=== PATIENT | male | born 1960 | race Caucasian/White ===

== ENCOUNTER → 2021-06-01 | Outpatient (CLI) | payer MEDICARE, OTHER | LOC: KOH-I 08:39 | DX: M25.561 Pain in right knee (principal); M25.361 Other instability, right knee; S82.091A Other fracture of right patella, initial encounter for closed fracture; S83.231A Complex tear of medial meniscus, current injury, right knee, initial encounter | CPT/HCPCS: 73721 ==

== ENCOUNTER 2021-09-23 11:08 | Inpatient (IN) | payer MEDICARE, OTHER ==
[~2021-09-23] VITALS: Ht 188 cm; Wt 124.7 kg
[2021-09-23 13:00] LABS: HEMOGLOBIN 13.8 gm/dl (14.0-17.5); RED BLOOD COUNT 4.49 M/UL (4.20-5.50); WHITE BLOOD COUNT 6.7 K/UL (4.5-11.0)
[2021-09-23 13:18] LABS: BUN/CREATININE RATIO 16 (0-10)
[2021-09-23] MEDS ORDERED: CARVEDILOL6.25 MG PO (15:51)
[2021-09-23] MEDS ORDERED: METFORMIN HCL1000 MG PO (15:51)
[2021-09-23] MEDS ORDERED: ISOSORBIDE MONO30 MG PO (15:51)
[2021-09-23] MEDS ORDERED: PROTONIX 40 MG40 M1 PO (15:52)
[2021-09-23] MEDS ORDERED: CRESTOR20 MG PO (15:52)
[2021-09-23] MEDS ORDERED: ASPIRIN EC81 MG PO (15:52)
[2021-09-23] MEDS ORDERED: FISH OIL 1,0001 EACH PO (15:53)
[2021-09-23] MEDS ORDERED: VITAMIN B-121000 MCG PO (15:53)
--- NOTE | 2021-09-24 01:06 | NUR ---
PATIENT WAS NAUSEATED FROM MORPHINE CONTACTED DR OMALLEY. DR ORDERED 4MG ZOFRAN ONCE.
[2021-09-24 06:49] LABS: HEMOGLOBIN 13.4 gm/dl (14.0-17.5); RED BLOOD COUNT 4.34 M/UL (4.20-5.50)
[2021-09-24 07:15] LABS: BUN/CREATININE RATIO 16 (0-10)
--- NOTE | 2021-09-25 15:17 | NUR ---
NOTIFIED OR NURSE WHEN SHE CAME TO TAKE PT TO SURGERY THAT THE PT WITH INR WASN'T DRAWN YET. LAB NOTIFIED AND STATES WILL DRAW LABS IN OR IF NEEDED. NOTIFIED SURGERY NURSE OF THIS AND SHE STATES ILL TAKE HIM DOWN AND ASK IF THEY NEED IT DRAWN AND IF SO I WILL CALL LAB.
[2021-09-26 05:18] LABS: HEMOGLOBIN 11.9 gm/dl (14.0-17.5); RED BLOOD COUNT 3.94 M/UL (4.20-5.50); WHITE BLOOD COUNT 6.6 K/UL (4.5-11.0)
[2021-09-26 05:42] LABS: BUN/CREATININE RATIO 19 (0-10)
[2021-09-27 05:40] LABS: HEMOGLOBIN 10.5 gm/dl (14.0-17.5); WHITE BLOOD COUNT 6.7 K/UL (4.5-11.0)
[2021-09-27 05:43] LABS: RED BLOOD COUNT 3.53 M/UL (4.20-5.50)
[2021-09-27 06:08] LABS: BUN/CREATININE RATIO 17 (0-10)
[2021-09-28 05:47] LABS: HEMOGLOBIN 10.9 gm/dl (14.0-17.5); RED BLOOD COUNT 3.73 M/UL (4.20-5.50); WHITE BLOOD COUNT 5.6 K/UL (4.5-11.0)
[2021-09-28 06:03] LABS: BUN/CREATININE RATIO 15 (0-10)
[2021-09-29 04:26] LABS: HEMOGLOBIN 10.2 gm/dl (14.0-17.5); RED BLOOD COUNT 3.37 M/UL (4.20-5.50); WHITE BLOOD COUNT 6.1 K/UL (4.5-11.0)
[2021-09-29 04:48] LABS: BUN/CREATININE RATIO 19 (0-10)
[2021-09-30 05:19] LABS: RED BLOOD COUNT 3.34 M/UL (4.20-5.50); WHITE BLOOD COUNT 5.2 K/UL (4.5-11.0)
[2021-09-30 06:26] LABS: BUN/CREATININE RATIO 19 (0-10)
[2021-10-02 06:53] LABS: HEMOGLOBIN 11.4 gm/dl (14.0-17.5); WHITE BLOOD COUNT 5.9 K/UL (4.5-11.0)
[2021-10-02 06:55] LABS: RED BLOOD COUNT 3.82 M/UL (4.20-5.50)
[2021-10-02 07:39] LABS: BUN/CREATININE RATIO 24 (0-10)
[2021-10-03] MEDS ORDERED: POLYETHYLENE GL17 GM PO (10:14)
[2021-10-03] MEDS ORDERED: STOOL SOFTENER250 MG PO (10:14)
[2021-10-03] MEDS ORDERED: HYDROCODON-ACE1 EAC2 PO (10:15)
--- NOTE | 2021-10-03 11:17 | NUR ---
PT ROOM AIR O2 SATURATION OF 1115 10/02/21 WAS 84%. WCTM
== END 2021-10-03 15:01 | disposition home or self-care (01) | DRG 459 ==
LOC: ER1 11:08 → M/S 14:44 → CDU 14:44 → M/S 14:44 → CCU 09-25 15:31 → M/S 09-25 15:31 → CCU 09-25 19:47 → M/S 09-30 14:59
PROVIDERS: Emergency Medicine; Internal Medicine Infectious Disease; Internal Medicine Pulmonary Disease; Orthopaedic Surgery; Physician Assistant; Physician Assistant Medical; ADMIT Internal Medicine
PROC: 0RGA071 Fusion of Thoracolumbar Vertebral Joint with Autologous Tissue Substitute, Posterior Approach, Posterior Column, Open Approach (ICD-10-PCS; 2021-09-25)
PROC: 0RG6071 Fusion of Thoracic Vertebral Joint with Autologous Tissue Substitute, Posterior Approach, Posterior Column, Open Approach (ICD-10-PCS; 2021-09-25)
PROC: 0SB20ZZ Excision of Lumbar Vertebral Disc, Open Approach (ICD-10-PCS; 2021-09-25)
PROC: 0RBB0ZZ Excision of Thoracolumbar Vertebral Disc, Open Approach (ICD-10-PCS; 2021-09-25)
PROC: 0RB90ZZ Excision of Thoracic Vertebral Disc, Open Approach (ICD-10-PCS; 2021-09-25)
PROC: 0SG1071 Fusion of 2 or more Lumbar Vertebral Joints with Autologous Tissue Substitute, Posterior Approach, Posterior Column, Open Approach (ICD-10-PCS; principal; 2021-09-25 13:00)
DX: S32.011A Stable burst fracture of first lumbar vertebra, initial encounter for closed fracture (principal); J96.01 Acute respiratory failure with hypoxia; A41.9 Sepsis, unspecified organism; R65.21 Severe sepsis with septic shock; J18.9 Pneumonia, unspecified organism; W01.0XXA Fall on same level from slipping, tripping and stumbling without subsequent striking against object, initial encounter; M54.2 Cervicalgia; G47.33 Obstructive sleep apnea (adult) (pediatric); S01.81XA Laceration without foreign body of other part of head, initial encounter; D69.6 Thrombocytopenia, unspecified; K21.9 Gastro-esophageal reflux disease without esophagitis; E11.65 Type 2 diabetes mellitus with hyperglycemia; I25.10 Atherosclerotic heart disease of native coronary artery without angina pectoris; E66.9 Obesity, unspecified; I10 Essential (primary) hypertension; G89.29 Other chronic pain; Z95.1 Presence of aortocoronary bypass graft; Z90.49 Acquired absence of other specified parts of digestive tract; Z79.84 Long term (current) use of oral hypoglycemic drugs; Z83.3 Family history of diabetes mellitus; Z82.49 Family history of ischemic heart disease and other diseases of the circulatory system; Z83.49 Family history of other endocrine, nutritional and metabolic diseases; Z68.35 Body mass index [BMI] 35.0-35.9, adult
CPT/HCPCS: ECHO; 12004; 36415; 36600; 70450; 71045; 71260; 71275; 72070; 72100; 72110; 72125; 72128; 72131; 76000; 80048; 80053; 81001; 82803; 82962; 83605; 83735; 83880; 84100; 85025; 85027; 86140; 86850; 86900; 86901; 86920; 87040; 87070; 87081; 87205; 90715; 93005; 93306; 93970; 94002; 94003; 94760; 96374; 96375; 96376; 97110-GP-CQ; 97116-GP-CQ; 97162; 97167; 97530; 97530-GP-CQ; 97535; 99284; C1713; C1762; C9113; G0378; J0690; J1040; J1650; J2001; J2250; J2270; J2370; J2405; J2543; J2704; J2710; J3010; J3370; J7030; J7040; J7050; J7120; Q9967; U0002